=== PATIENT | female | born 1960 | race Caucasian/White ===

== ENCOUNTER 2017-01-11 10:28 | Emergency (ER) | payer MEDICARE, MEDICAID ==
[2017-01-11 10:54] VITALS: BP 178/80; PULSE 79; RESP 18; TEMP 98.4; O2SAT 98
== END 2017-01-11 12:08 | disposition home or self-care (01) ==
LOC: H.ER 10:28
DX: S20.211A Contusion of right front wall of thorax, initial encounter (principal); Y93.83 Activity, rough housing and horseplay
CPT/HCPCS: 71101; 96372; 99282; J1885

== ENCOUNTER 2017-09-26 12:04 | Emergency (ER) | payer MEDICARE, MEDICAID ==
[2017-09-26 12:10] VITALS: TEMP 98
--- NOTE | 2017-09-26 13:12 | ED PDOC ---
HPI: Headache Time Seen by Provider: 09/26/17 12:25 Chief Complaint (Nursing): Headache Chief Complaint (Provider): Headache History Per: Patient History/Exam Limitations: no limitations Onset/Duration Of Symptoms: Days (x2) Current Symptoms Are (Timing): Still Present Quality: "Pain" Preceeding Symptoms: None Associated Symptoms: Nausea Additional Complaint(s): Becky Burns is a 57 year old female, with a past medical history of HTN, hyperlipidemia, and COPD, who presents to the emergency department complaining of generalized weakness and a headache associated with nausea onset for x2 days. Patient also reports a painful rash to the left lower leg since yesterday. Patient states headache is not the worst in her life. Patient has a cough but states she was evaluated by PMD who prescribed her Spiriva and inhaler with improvement of symptoms. She denies any fever, chills, vomiting, diarrhea, chest pain, shortness of breath or other medical complaints. PMD: Jami Garcia Past Medical History Reviewed: Historical Data, Nursing Documentation, Vital Signs Vital Signs: Last Vital Signs Temp 98.0 F 09/26/17 12:07 Pulse 90 09/26/17 12:07 Resp 20 09/26/17 12:07 BP 139/65 09/26/17 12:07 Pulse Ox 95 09/26/17 12:07 - Medical History PMH: Bipolar Disorder, COPD, Hepatitis, HTN, Hyperlipidemia - Surgical History Surgical History: Cholecystectomy - Family History Family History: States: Unknown Family Hx - Social History Current smoker - smoking cessation education provided: Yes (Current some days) Alcohol: None Drugs: Denies - Home Medications Home Medications: Ambulatory Orders Medication Instructions Recorded Acetaminophen/Hydrocodone Bi 1 tab PO QID PRN #12 tab 02/20/15 [Hydrocodone-Acetaminophen 300 mg-5 mg] Cyclobenzaprine [Cyclobenzaprine 10 mg PO TID #20 tab 01/11/17 HCl] Ibuprofen [Motrin] 600 mg PO Q6 #20 tab 01/11/17 Amoxicillin/Clavulanate [Augmentin 1 tab PO BID #20 tab 09/26/17 875 MG-125 MG] - Allergies Allergies/Adverse Reactions: Allergies Allergy/AdvReac Type Severity Reaction Status Date / Time No Known Allergies Allergy Verified 02/20/15 17:07 Review of Systems ROS Statement: Except As Marked, All Systems Reviewed And Found Negative Constitutional: Negative for: Fever, Chills Cardiovascular: Negative for: Chest Pain Respiratory: Positive for: Cough. Negative for: Shortness of Breath Gastrointestinal: Positive for: Nausea. Negative for: Vomiting, Diarrhea Skin: Positive for: Rash (left lower leg) Neurological: Positive for: Headache Physical Exam - Reviewed Nursing Documentation Reviewed: Yes Vital Signs Reviewed: Yes - Physical Exam Appears: Positive for: Non-toxic, No Acute Distress Head Exam: Positive for: ATRAUMATIC, NORMOCEPHALIC Skin: Positive for: Normal Color, Warm, Dry Eye Exam: Positive for: Normal appearance Neck: Positive for: Painless ROM Cardiovascular/Chest: Positive for: Regular Rate, Rhythm. Negative for: Murmur Respiratory: Positive for: Normal Breath Sounds. Negative for: Respiratory Distress Extremity: Positive for: Normal ROM (upper and lower extremities), Other ( erythema to left anterior leg with warmth ). Negative for: Calf Tenderness, Deformity Neurologic/Psych: Positive for: Alert, Oriented - Laboratory Results Result Diagrams: 09/26/17 13:25 09/26/17 13:25 - ECG O2 Sat by Pulse Oximetry: 95 (RA) Pulse Ox Interpretation: Normal Medical Decision Making Medical Decision Making: Time: 12:25 Initial Impression: headache Initial Plan: --Head w/o contrast [CT] --CMP --CBC w/ differential --Reevaluation 14:[address] FINDINGS: HEMORRHAGE: No intracranial hemorrhage. BRAIN: No mass effect or edema. No atrophy or chronic microvascular ischemic changes. VENTRICLES: Unremarkable. No hydrocephalus. CALVARIUM: Unremarkable. PARANASAL SINUSES: Unremarkable as visualized. No significant inflammatory changes. MASTOID AIR CELLS: Unremarkable as visualized. No inflammatory changes. OTHER FINDINGS: None. IMPRESSION: Normal CT of the Head. Scribe Attestation: Documented by Skyler Birmingham, acting as a scribe for Britt Spivey MD Provider Scribe Attestation: All medical record entries made by the Scribe were at my direction and personally dictated by me. I have reviewed the chart and agree that the record accurately reflects my personal performance of the history, physical exam, medical decision making, and the department course for this patient. I have also personally directed, reviewed, and agree with the discharge instructions and disposition. Disposition - Clinical Impression Clinical Impression: Headache, Cellulitis - Disposition Referrals: [facility] [Outside] Disposition: Routine/Home Disposition Time: 14:32 Condition: STABLE Additional Instructions: Please follow-up with PMD in 2 days. Prescriptions: Amoxicillin/Clavulanate [Augmentin 875 MG-125 MG] 1 tab PO BID #20 tab Instructions: Headache, Adult, Cellulitis (Skin Infection), Adult (DC) Forms: [employer] (Indian)
[2017-09-26 13:49] LABS: BASO % 0.4 % (0.0-2.0); EOS % 0.1 % (0.0-4.0); HEMOGLOBIN 13.7 g/dL (12.0-16.0); LYMPH # 1.4 K/uL (1.0-4.3); LYMPH % 11.8 % (20.0-40.0); MEAN CELL VOLUME 94.6 fl (81.0-99.0); MEAN CORPUSCULAR HEMOGLOBIN 31.8 pg (27.0-31.0); MEAN CORPUSCULAR HGB CONC 33.6 g/dL (33.0-37.0); MEAN PLATELET VOLUME 9.2 fl (7.2-11.7); MONO # 0.8 K/uL (0.0-0.8); MONO % 6.9 % (0.0-10.0); NEUT # 9.5 K/uL (1.8-7.0); NEUT % 80.8 % (50.0-75.0); NRBC % 0.1 % (0.0-0.0); RBC 4.3 Mil/uL (3.80-5.20); RED CELL DISTRIBUTION WIDTH 13.6 % (11.5-14.5); WHITE BLOOD COUNT 11.8 K/uL (4.8-10.8)
--- NOTE | 2017-09-26 14:03 | CT ---
PROCEDURE: CT HEAD WITHOUT CONTRAST. HISTORY: headache, nausea COMPARISON: None available. TECHNIQUE: Axial computed tomography images were obtained through the head/brain without intravenous contrast. Radiation dose: Total exam DLP = 751 mGy-cm. This CT exam was performed using one or more of the following dose reduction techniques: Automated exposure control, adjustment of the mA and/or kV according to patient size, and/or use of iterative reconstruction technique. FINDINGS: HEMORRHAGE: No intracranial hemorrhage. BRAIN: No mass effect or edema. No atrophy or chronic microvascular ischemic changes. VENTRICLES: Unremarkable. No hydrocephalus. CALVARIUM: Unremarkable. PARANASAL SINUSES: Unremarkable as visualized. No significant inflammatory changes. MASTOID AIR CELLS: Unremarkable as visualized. No inflammatory changes. OTHER FINDINGS: None. IMPRESSION: Normal CT of the Head.
[2017-09-26 14:07] LABS: SQUAMOUS EPITHIAL 1 /hpf (0-5); URINE BACTERIA RARE (<OCC); URINE BILIRUBIN NEGATIVE (NEGATIVE); URINE BLOOD NEGATIVE (NEGATIVE); URINE CLARITY CLEAR (Clear); URINE COLOR YELLOW (YELLOW); URINE GLUCOSE (UA) NEG (Normal); URINE LEUKOCYTE ESTERASE NEG Leu/uL (Negative); URINE PROTEIN NEGATIVE (NEGATIVE); URINE UROBILINOGEN 0.2-1.0 mg/dL (0.2-1.0)
[2017-09-26 14:09] LABS: ALBUMIN 3.8 g/dL (3.5-5.0); ALT/SGPT 28 U/L (9-52); AST/SGOT 53 U/L (14-36); BLOOD UREA NITROGEN 17 mg/dl (7-17); GFR AFRICAN-AMERICAN > 60; GFR NON-AFRICAN AMERICAN > 60
[2017-09-26 15:04] VITALS: BP 124/67; PULSE 88; RESP 18; O2SAT 98
== END 2017-09-26 15:08 | disposition home or self-care (01) ==
LOC: H.ER 12:04
DX: R51 Headache (principal); L03.116 Cellulitis of left lower limb; E78.5 Hyperlipidemia, unspecified; I10 Essential (primary) hypertension; F31.9 Bipolar disorder, unspecified; J44.9 Chronic obstructive pulmonary disease, unspecified; F17.200 Nicotine dependence, unspecified, uncomplicated
CPT/HCPCS: 70450; 80053; 81003; 85025; 87086; 96374; 99285; J1885

== ENCOUNTER 2018-03-09 09:22 | Emergency (ER) | payer MEDICARE, MEDICAID ==
[2018-03-09 12:26] LABS: URINE BILIRUBIN NEGATIVE (NEGATIVE); URINE CLARITY Clear (Clear); URINE COLOR YELLOW (YELLOW); URINE GLUCOSE (UA) NEGATIVE (Normal)
[2018-03-09 12:27] LABS: URINE BLOOD NEGATIVE (NEGATIVE); URINE LEUKOCYTE ESTERASE NEGATIVE Leu/uL (Negative); URINE PROTEIN NEGATIVE (NEGATIVE); URINE UROBILINOGEN 0.2-1.0 mg/dL (0.2-1.0)
[2018-03-09 12:28] LABS: SQUAMOUS EPITHIAL 1 /hpf (0-5); URINE BACTERIA RARE (<OCC)
[2018-03-09] MEDS ORDERED: Acetaminophen-Codeine 300/30 mg Tab PO STA (12:38)
--- NOTE | 2018-03-09 12:38 | ED PDOC ---
HPI: Back Time Seen by Provider: 03/09/18 10:23 Chief Complaint (Nursing): Back Pain Chief Complaint (Provider): Chronic Back Pain History Per: Patient History/Exam Limitations: no limitations Onset/Duration Of Symptoms: Days (>365) Current Symptoms Are (Timing): Still Present Quality Of Discomfort: Sharp, Dull, "Pain" (Pt presents to the ED complaining of long standing lumbar back pain that is equal on both sides, without radiation; her relief has come from OTC remedies thus far and recently, yeserday, her pain became so severe and significnt that she felt the need to come to the hospital for relief. The patient does have a PMD but no need for specialization) Past Medical History Reviewed: Historical Data, Nursing Documentation, Vital Signs - Medical History PMH: Bipolar Disorder, COPD, Hepatitis, HTN, Hyperlipidemia - Surgical History Surgical History: Cholecystectomy - Family History Family History: States: Unknown Family Hx - Home Medications Home Medications: Ambulatory Orders Medication Instructions Recorded Acetaminophen/Hydrocodone Bi 1 tab PO QID PRN #12 tab 02/20/15 [Hydrocodone-Acetaminophen 300 mg-5 mg] Cyclobenzaprine [Cyclobenzaprine 10 mg PO TID #20 tab 01/11/17 HCl] Ibuprofen [Motrin] 600 mg PO Q6 #20 tab 01/11/17 Amoxicillin/Clavulanate [Augmentin 1 tab PO BID #20 tab 09/26/17 875 MG-125 MG] Cyclobenzaprine [Flexeril] 10 mg PO BID #30 tab 03/09/18 Ondansetron ODT [Zofran ODT] 4 mg PO BID PRN #10 odt 03/09/18 - Allergies Allergies/Adverse Reactions: Allergies Allergy/AdvReac Type Severity Reaction Status Date / Time No Known Allergies Allergy Verified 02/20/15 17:07 Review of Systems ROS Statement: Except As Marked, All Systems Reviewed And Found Negative Constitutional: Negative for: Fever, Chills, Sweats, Weakness, Malaise Musculoskeletal: Positive for: Back Pain Physical Exam - Reviewed Nursing Documentation Reviewed: Yes Vital Signs Reviewed: Yes - Physical Exam Appears: Positive for: Well, Non-toxic, No Acute Distress Head Exam: Positive for: ATRAUMATIC, NORMAL INSPECTION Skin: Positive for: Normal Color, Warm, Dry Eye Exam: Positive for: Normal appearance Neck: Positive for: Normal, Painless ROM, Supple, Trachea Midline. Negative for: Decreased ROM, Pain On Movement Of Neck Cardiovascular/Chest: Positive for: Regular Rate, Rhythm. Negative for: Chest Non Tender, Edema, Gallop, Murmur, Bradycardia, Tachycardia Respiratory: Positive for: Normal Breath Sounds. Negative for: Decreased Breath Sounds, Accessory Muscle Use, Crackles, Rales, Rhonchi, Stridor, Wheezing, Respiratory Distress Pulses-Carotid (L): 2+ Pulses-Carotid (R): 2+ Pulses-Radial (L): 2+ Pulses-Radial (R): 2+ Gastrointestinal/Abdominal: Positive for: Normal Exam, Bowel Sounds, Soft. Negative for: Tenderness Back: Positive for: Normal Inspection (surgical scar noted lumbar midline; healed (several years old)). Negative for: L CVA Tenderness, R CVA Tenderness Neurologic/Psych: Positive for: Alert, Mood/Affect - Laboratory Results Urine dip results: Negative for: Leukocyte Esterase, Blood, Nitrate, Ketones, Glucose, Bilirubin, Protein Medical Decision Making Medical Decision Makin Lumbar spine x-ray FINDINGS: BONES: Normal alignment. No listhesis. No fracture. DISC SPACES: Unremarkable. OTHER FINDINGS: None. IMPRESSION: Unremarkable radiographs of the lumbar spine. Pt reacted well to low dose opiod and muscle relaxer Rx same with steroid taper Disposition - Clinical Impression Clinical Impression: Chronic back pain - Patient ED Disposition Is Patient to be Admitted: No Doctor Will See Patient In The: Office Counseled Patient/Family Regarding: Studies Performed, Diagnosis, Need For Followup - Disposition Disposition: Routine/Home Disposition Time: 15:49 Condition: STABLE Additional Instructions: follow up with PMD this week Prescriptions: Cyclobenzaprine [Flexeril] 10 mg PO BID #30 tab Ondansetron ODT [Zofran ODT] 4 mg PO BID PRN #10 odt PRN Reason: Nausea/Vomiting Instructions: Chronic Pain, Chronic Pain (DC) Forms: [employer] (Macedonian)
[2018-03-09] MEDS ORDERED: Acetaminophen-Codeine 300/30 mg Tab ONE (13:34)
--- NOTE | 2018-03-09 14:29 | RAD ---
Date of service: 03/09/2018 PROCEDURE: Radiographs of the Lumbar Spine. HISTORY: back pain COMPARISON: No prior. FINDINGS: BONES: Normal alignment. No listhesis. No fracture. DISC SPACES: Unremarkable. OTHER FINDINGS: None. IMPRESSION: Unremarkable radiographs of the lumbar spine.
[2018-03-09 16:09] VITALS: BP 154/88; PULSE 81; RESP 18; TEMP 98.2; O2SAT 98
== END 2018-03-09 16:07 | disposition home or self-care (01) ==
LOC: H.ER 09:22
DX: M54.9 Dorsalgia, unspecified (principal); E78.5 Hyperlipidemia, unspecified; G89.29 Other chronic pain; I10 Essential (primary) hypertension
CPT/HCPCS: 72114; 81003; 96372; 99283; J1100; J1885

== ENCOUNTER 2018-03-26 10:37 | Emergency (ER) | payer MEDICARE, MEDICAID ==
[2018-03-26 11:02] VITALS: RESP 16; TEMP 98.2
[2018-03-26] MEDS ORDERED: Erythromycin 0.5% Ophth Oint 1 APPLIC/3.5 G OS ONE (11:19)
[2018-03-26] MEDS ORDERED: Naproxen 500 MG TAB PO STA (11:19)
[2018-03-26] MEDS ORDERED: Naproxen 500 MG TAB PO ONE (11:49)
--- NOTE | 2018-03-26 12:36 | ED PDOC ---
HPI: Eye Injury/Pain Time Seen by Provider: 03/26/18 11:10 Chief Complaint (Nursing): Eye Problem Chief Complaint (Provider): Eye Problem History Per: Patient History/Exam Limitations: no limitations Onset/Duration Of Symptoms: Days (x3) Current Symptoms Are (Timing): Still Present Additional Complaint(s): 57 year old female presents for evaluation of left lower eye lid swelling. She reports, for the last 3 days, the eye has been itchy with increased tearing. When she woke up this morning, there was swelling prompting evaluation. She reports crusting upon waking up this morning. Denies fever, trauma, vision changes, or foreign body sensation. She reports she does wear contacts. PMD: Dr. Casey Board Certified Behavioral Analyst: Dr. Faustin Past Medical History Reviewed: Historical Data, Nursing Documentation, Vital Signs Vital Signs: Last Vital Signs Temp 98.2 F 03/26/18 10:59 Pulse 89 03/26/18 10:59 Resp 16 03/26/18 10:59 BP 138/78 03/26/18 10:59 Pulse Ox 99 03/26/18 10:59 - Medical History PMH: Bipolar Disorder, COPD, Hepatitis, HTN, Hyperlipidemia - Surgical History Surgical History: Cholecystectomy - Family History Family History: States: Unknown Family Hx - Social History Current smoker - smoking cessation education provided: Yes (5 cigarettes a day) - Home Medications Home Medications: Ambulatory Orders Medication Instructions Recorded Acetaminophen/Hydrocodone Bi 1 tab PO QID PRN #12 tab 02/20/15 [Hydrocodone-Acetaminophen 300 mg-5 mg] Cyclobenzaprine [Cyclobenzaprine 10 mg PO TID #20 tab 01/11/17 HCl] Ibuprofen [Motrin] 600 mg PO Q6 #20 tab 01/11/17 Amoxicillin/Clavulanate [Augmentin 1 tab PO BID #20 tab 09/26/17 875 MG-125 MG] Acetaminophen with Codeine 2 each PO QID #40 tablet 03/09/18 [Tylenol with Codeine #3 Tablet] Methylprednisolone [Medrol Dose 4 mg PO ASDIR #21 mg 03/09/18 Pack (21 tabs)] Ondansetron ODT [Zofran ODT] 4 mg PO BID PRN #10 odt 03/09/18 RX: Cyclobenzaprine [Flexeril] 10 mg PO BID #30 tab 03/09/18 Cephalexin [Keflex] 500 mg PO TID #21 capsule 03/26/18 RX: Erythromycin 0.5% 1 applic OS Q6 #1 tube 03/26/18 [Erythromycin] - Allergies Allergies/Adverse Reactions: Allergies Allergy/AdvReac Type Severity Reaction Status Date / Time No Known Allergies Allergy Verified 02/20/15 17:07 Review of Systems ROS Statement: Except As Marked, All Systems Reviewed And Found Negative Constitutional: Negative for: Fever Eyes: Positive for: Other (Left lower eyelid swelling; no foreign body sensation). Negative for: Vision Change Physical Exam - Reviewed Nursing Documentation Reviewed: Yes Vital Signs Reviewed: Yes - Physical Exam Comments: GENERAL APPEARANCE: Patient is awake, alert, oriented x 3, in no acute distress. HEENT: Mild edema to the infraorbital aspect of the left eye. Tenderness to the medial aspect of the lower eyelid with faint erythema, early stye. (-) facial blisters. LIDS & LASHES: Normal. (-) crusting. PUPILS: Pupils equal and reactive to light EOM's: Intact ad painless. LID EVERSION: (-) foreign body CONJUNCTIVAE: (-) conjunctival injection. ANTERIOR CHAMBER: (-) hyphema. RESPIRATORY: Lungs clear to auscultation bilaterally. Respirations even and nonlabored. CARDIAC: RRR NECK: Supple, FROM - ECG O2 Sat by Pulse Oximetry: 99 (RA) Pulse Ox Interpretation: Normal Medical Decision Making Medical Decision Making: Initial Impression: Infected stye Initial Plan: --Erythromycin 0.5% OS --Keflex 500mg PO --Naproxen 500mg PO --Re-evaluation 1225 On re-evaluation, patient reports improvement of symptoms. On exam, patient remains AAOx3, in no acute distress. Vitals stable. Lab/Diagnostic results d/w the patient in great detail. Diagnosis of infected stye d/w the patient. Based on history, exam and diagnostic results, plan will be for outpatient follow up with ophtho. Patient instructed to follow-up with pmd / referral provided / the clinic in 1- 2 days without fail. Advised to take medication as prescribed. Return to the emergency room at any time for any new or worsening symptoms. Patient states she fully agrees with and understands discharge instructions. States that she agrees with the plan and disposition. Verbalized and repeated discharge instructions and plan. I have given the patient opportunity to ask any additional questions. Scribe Attestation: Documented by Dylan De La Cruz acting as a scribe for Roberta MELENDEZ. Provider Scribe Attestation: All medical record entries made by the Scribe were at my direction and personally dictated by me. I have reviewed the chart and agree that the record accurately reflects my personal performance of the history, physical exam, medical decision making, and the department course for this patient. I have also personally directed, reviewed, and agree with the discharge instructions and disposition. Disposition - Clinical Impression Clinical Impression: Eyelid edema, Stye - Patient ED Disposition Is Patient to be Admitted: No Counseled Patient/Family Regarding: Studies Performed, Diagnosis, Need For Followup, Rx Given - Disposition Referrals: Chaparro Greenwood MD [Staff Provider] - Disposition: Routine/Home Disposition Time: 12:35 Condition: STABLE Additional Instructions: The emergency medical care you received today was directed at your acute symptoms. If you were prescribed any medication, please fill it and take as d irected. It may take several days for your symptoms to resolve. Return to the Emergency Department if your symptoms worsen, do not improve, or if you have any other problems. Please contact your doctor in 2 days for re-evaluation and follow up / or call one of the physicians/clinics you have been referred to that are listed on the Patient Visit Information form that is included in your discharge packet. Bring any paperwork you were given at discharge with you along with any medications you are taking to your follow up visit. Our treatment cannot replace ongoing medical care by a primary care provider (PCP) outside of the emergency department. Prescriptions: Cephalexin [Keflex] 500 mg PO TID #21 capsule RX: Erythromycin 0.5% [Erythromycin] 1 applic OS Q6 #1 tube Instructions: Stye (Hordeolum), How to Use Eye Ointment Forms: [facility] [employer] (Cambodian) Print Language: POLISH - POA Present On Arrival: None
[2018-03-26 12:42] VITALS: BP 132/72; PULSE 82
[2018-03-26 13:45] VITALS: O2SAT 99
== END 2018-03-26 12:41 | disposition home or self-care (01) ==
LOC: H.ER 10:37
DX: H00.014 Hordeolum externum left upper eyelid (principal); E78.5 Hyperlipidemia, unspecified